=== PATIENT | female | born 2000 | race Caucasian/White ===

== ENCOUNTER 2020-11-11 22:04 | Emergency (ER) | payer OTHER ==
[2020-11-11 23:18] LABS: HEMOGLOBIN 11.9 gm/dl (12.3-15.3); RED BLOOD COUNT 4.51 M/UL (4.00-5.10); WHITE BLOOD COUNT 5.7 K/UL (4.5-11.0)
[2020-11-11 23:30] LABS: BUN/CREATININE RATIO 10 (0-10)
[2020-11-12] MEDS ORDERED: MACROBID 100 M100 MG PO (00:18)
[2020-11-12] MEDS ORDERED: DICLEGIS DR 101 EACH PO (00:18)
== END 2020-11-12 00:26 | disposition home or self-care (01) ==
LOC: ER1 22:04
PROVIDERS: Physician Assistant Medical
DX: O23.12 Infections of bladder in pregnancy, second trimester (principal); Z3A.19 19 weeks gestation of pregnancy
CPT/HCPCS: 80053; 81001; 84702; 85025; 96374; 99284; J2765; J7030

== ENCOUNTER 2021-05-21 15:49 | Observation (INO) | payer OTHER ==
[~2021-05-21] VITALS: Ht 160 cm; Wt 65.8 kg
[~2021-05-21 15:49] MED LIST: DICLEGIS DR 101 EACH PO; MACROBID 100 M100 MG PO
[2021-05-21] MEDS ORDERED: PRENATAL TABLE1 EAC1 PO (17:32)
[2021-05-22 14:42] LABS: HEMOGLOBIN 9.7 gm/dl (12.3-15.3); RED BLOOD COUNT 3.53 M/UL (4.00-5.10); WHITE BLOOD COUNT 7.2 K/UL (4.5-11.0)
== END 2021-05-23 13:30 | disposition home or self-care (01) ==
LOC: GENOP 15:49 → OB 16:52
PROVIDERS: ADMIT Obstetrics & Gynecology
DX: O36.5930 Maternal care for other known or suspected poor fetal growth, third trimester, not applicable or unspecified (principal); O41.03X0 Oligohydramnios, third trimester, not applicable or unspecified; O99.283 Endocrine, nutritional and metabolic diseases complicating pregnancy, third trimester; E28.2 Polycystic ovarian syndrome; Z20.822 Contact with and (suspected) exposure to COVID-19; Z3A.34 34 weeks gestation of pregnancy
CPT/HCPCS: 59025; 76815; 81001; 85025; 87086; 96360; 96361; 96365; 96367; J0696; J7120; U0002

== ENCOUNTER 2021-05-30 23:24 | Outpatient (CLI) | payer OTHER ==
[~2021-05-30 23:24] MED LIST changes: +PRENATAL TABLE1 EAC1 PO
== END 2021-05-31 02:28 | disposition home or self-care (01) ==
LOC: GENOP 23:24
DX: O47.03 False labor before 37 completed weeks of gestation, third trimester (principal); Z3A.35 35 weeks gestation of pregnancy
CPT/HCPCS: G0463

== ENCOUNTER 2021-06-06 01:35 | Outpatient (CLI) | payer OTHER | END 2021-06-06 04:06 | disposition home health service (06) | LOC: GENOP 01:35 | DX: O21.2 Late vomiting of pregnancy (principal); O99.283 Endocrine, nutritional and metabolic diseases complicating pregnancy, third trimester; O23.43 Unspecified infection of urinary tract in pregnancy, third trimester; O99.891 Other specified diseases and conditions complicating pregnancy; R10.30 Lower abdominal pain, unspecified; Z3A.36 36 weeks gestation of pregnancy; N39.0 Urinary tract infection, site not specified; E28.2 Polycystic ovarian syndrome | CPT/HCPCS: 59025; 81001; 96360; 96374; C9113; J2405; J7120 ==

== ENCOUNTER 2021-06-15 04:57 | Inpatient (IN) | payer OTHER ==
[~2021-06-15] VITALS: Ht 160 cm; Wt 68.5 kg
[2021-06-15 05:57] LABS: HEMOGLOBIN 10.8 gm/dl (12.3-15.3); RED BLOOD COUNT 3.92 M/UL (4.00-5.10); WHITE BLOOD COUNT 11.3 K/UL (4.5-11.0)
[2021-06-15] MEDS ORDERED: IBUPROFEN600 MG PO (10:29)
[2021-06-15] MEDS ORDERED: DOCUSATE SODIU100 MG PO (10:29)
[2021-06-15] MEDS ORDERED: HYDROCODON-ACE1 EAC4 PO (12:28)
[2021-06-16 06:45] LABS: HEMOGLOBIN 9.8 gm/dl (12.3-15.3)
== END 2021-06-16 14:26 | disposition home or self-care (01) | DRG 805 ==
LOC: OB 04:57
PROVIDERS: Obstetrics & Gynecology; ADMIT Obstetrics & Gynecology
PROC: 10E0XZZ Delivery of Products of Conception, External Approach (ICD-10-PCS; principal; 2021-06-15)
PROC: 10907ZC Drainage of Amniotic Fluid, Therapeutic from Products of Conception, Via Natural or Artificial Opening (ICD-10-PCS; 2021-06-15)
PROC: 10H07YZ Insertion of Other Device into Products of Conception, Via Natural or Artificial Opening (ICD-10-PCS; 2021-06-15)
PROC: 8E0ZXY6 Isolation (ICD-10-PCS; 2021-06-15)
PROC: 3E033VJ Introduction of Other Hormone into Peripheral Vein, Percutaneous Approach (ICD-10-PCS; 2021-06-15)
PROC: 3E0R3NZ Introduction of Analgesics, Hypnotics, Sedatives into Spinal Canal, Percutaneous Approach (ICD-10-PCS; 2021-06-15)
DX: O36.5930 Maternal care for other known or suspected poor fetal growth, third trimester, not applicable or unspecified (principal); U07.1 COVID-19; Z37.0 Single live birth; O41.03X0 Oligohydramnios, third trimester, not applicable or unspecified; O98.513 Other viral diseases complicating pregnancy, third trimester; Z3A.38 38 weeks gestation of pregnancy; Z90.49 Acquired absence of other specified parts of digestive tract; O99.013 Anemia complicating pregnancy, third trimester; D64.9 Anemia, unspecified
CPT/HCPCS: 36415; 81001; 82800; 85014; 85018; 85025; 85461; 86850; 86900; 86901; 90715; J2590; J2790